=== PATIENT | male | born 1965 | race Caucasian/White ===

== ENCOUNTER 2017-11-03 06:34 | Emergency (ER) | payer OTHER, MEDICAID ==
[~2017-11-03] VITALS: Ht 180.3 cm; Wt 110.0 kg
[2017-11-03] MEDS ORDERED: BUPIVACAINE/PF 0.5% INFIL ONE (07:00)
[2017-11-03 08:18] VITALS: BP 127/76
== END 2017-11-03 09:15 | disposition home or self-care (01) ==
LOC: ED 06:51
DX: S00.93XA Contusion of unspecified part of head, initial encounter (principal); S00.12XA Contusion of left eyelid and periocular area, initial encounter; S00.11XA Contusion of right eyelid and periocular area, initial encounter; S20.212A Contusion of left front wall of thorax, initial encounter; S03.2XXA Dislocation of tooth, initial encounter; Y04.0XXA Assault by unarmed brawl or fight, initial encounter; Y93.89 Activity, other specified; Y92.143 Cell of prison as the place of occurrence of the external cause; Y99.8 Other external cause status
CPT/HCPCS: 70450; 70486; 71045; 99284

== ENCOUNTER 2020-09-13 10:10 | Inpatient (IN) | payer MEDICAID ==
[~2020-09-13] VITALS: Ht 180.3 cm; Wt 93.5 kg
[2020-09-13] MEDS ORDERED: ACETAMINOPHEN 325 MG TABLET PO PRN (10:30)
[2020-09-13] MEDS ORDERED: ONDANSETRON ODT 4 MG PO PRN (10:30)
[2020-09-13] MEDS ORDERED: BISACODYL 10 MG SUPP PR PRN (10:30)
[2020-09-13] MEDS ORDERED: POLYETHYLENE GLYCOL 17 GM PACKET PO PRN (10:30)
[2020-09-13] MEDS ORDERED: DOCUSATE 100 MG CAPSULE PO PRN (10:30)
[2020-09-13 17:30] VITALS: BP 204/126
[2020-09-13] MEDS ORDERED: PLEASE ENTER HEIGHT AND WEIGHT MC SCH (17:30)
[2020-09-13] MEDS ORDERED: LISINOPRIL 20 MG TABLET ONE (17:39)
[2020-09-13] MEDS ORDERED: LISINOPRIL 20 MG TABLET PO ONE (18:00)
[2020-09-13 18:59] LABS: BASOPHILS % (AUTO) 0 % (0-1); EOSINOPHILS % (AUTO) 2 % (1-7); LYMPHOCYTES % (AUTO) 36 % (22-44); MEAN CORPUSCULAR HGB CONC 33.5 g/dL (33.2-36.2); MEAN PLATELET VOLUME 9.1 fL (7.4-10.4); MONOCYTES % (AUTO) 10 % (2-9); NEUTROPHILS % (AUTO) 52 % (42-75); PLATELET COUNT 211 x10^3/uL (130-400); RED BLOOD COUNT 5.05 x10^6/uL (4.38-5.82); RED CELL DISTRIBUTION WIDTH 14.7 % (9.4-14.8)
[2020-09-13 19:00] VITALS: BP 169/98
[2020-09-13 19:03] LABS: MD NO
[2020-09-13 19:08] LABS: ALBUMIN 3.9 g/dL (3.4-5.0); ANION GAP 6 mmol/L (5-15); CALCIUM 8.6 mg/dL (8.5-10.1); CHLORIDE 106 mmol/L (98-107)
[2020-09-13 19:16] LABS: ALANINE AMINOTRANSFERASE 22 U/L (12-78); ALKALINE PHOSPHATASE 70 U/L (45-117); BILIRUBIN,TOTAL 0.5 mg/dL (0.2-1.0); CHOL/HDL RATIO 2.9; CHOLESTEROL, TOTAL 195 mg/dL (140-239); CREATININE 1.07 mg/dL (0.7-1.3); FREE T4 (FREE THYROXINE) 0.95 ng/dL (0.76-1.46); HDL CHOL % 34 % (26-37); HDL CHOLESTEROL (DIRECT) 67 mg/dL (40-60); LDL CHOLESTEROL,CALCULATED 108 mg/dL (54-169); LDL/HDL RATIO 1.6 (0.5-3.0); TOTAL PROTEIN 7.2 g/dL (6.4-8.2); TRIGLYCERIDES 98 mg/dL (50-200); VLDL CHOLESTEROL 20 mg/dL (0-25)
[2020-09-13 19:42] VITALS: BP 179/99
[2020-09-13] MEDS: HYDROCHLOROTHIAZIDE 25 MG TABLET PO SCH (20:04)
[2020-09-13 21:30] VITALS: BP 159/99
[2020-09-13 23:56] LABS: MICROSCOPIC NOT IND
[2020-09-14 07:21] VITALS: BP 158/84
[2020-09-14] MEDS ORDERED: GLUCAGON 1 MG IM PRN (07:30)
[2020-09-14] MEDS ORDERED: DEXTROSE 50%, 50ML SYRINGE IVPush PRN (07:30)
[2020-09-14] MEDS ORDERED: DEXTROSE 4 GM TAB.CHEW PO PRN (07:30)
[2020-09-14] MEDS ORDERED: SODIUM CHLORIDE FLUSH 10ML SYR IVF SCH (09:00)
[2020-09-14] MEDS: HYDROCHLOROTHIAZIDE 25 MG TABLET PO SCH (09:00)
[2020-09-14] MEDS: LISINOPRIL 20 MG TABLET PO SCH (09:34)
[2020-09-14] MEDS: CARIPRAZINE 1.5 MG CAP PO SCH (14:26)
[2020-09-14 19:31] VITALS: BP 160/90
[2020-09-14] MEDS: DIVALPROEX 250 MG TABLET.DR PO SCH (20:26)
[2020-09-15 07:23] VITALS: BP 159/82
[2020-09-15] MEDS: HYDROCHLOROTHIAZIDE 25 MG TABLET PO SCH (09:00)
[2020-09-15] MEDS: CARIPRAZINE 1.5 MG CAP PO SCH (09:31)
[2020-09-15] MEDS: DIVALPROEX 250 MG TABLET.DR PO SCH ×2 (09:31→20:30)
[2020-09-15] MEDS: LISINOPRIL 20 MG TABLET PO SCH (09:31)
[2020-09-15 19:40] VITALS: BP 140/88
[2020-09-16 07:27] VITALS: BP 150/96
[2020-09-16] MEDS: DIVALPROEX 250 MG TABLET.DR PO SCH ×2 (08:32→20:07)
[2020-09-16] MEDS: LISINOPRIL 20 MG TABLET PO SCH (08:32)
[2020-09-16] MEDS: HYDROCHLOROTHIAZIDE 25 MG TABLET PO SCH (08:33)
[2020-09-16] MEDS: CARIPRAZINE 1.5 MG CAP PO SCH (09:00)
[2020-09-16 19:42] VITALS: BP 140/83
[2020-09-17 07:14] VITALS: BP 168/98
[2020-09-17] MEDS: LISINOPRIL 20 MG TABLET PO SCH (08:49)
[2020-09-17] MEDS: DIVALPROEX 250 MG TABLET.DR PO SCH ×2 (08:49→20:09)
[2020-09-17] MEDS: HYDROCHLOROTHIAZIDE 25 MG TABLET PO SCH (08:50)
[2020-09-17] MEDS ORDERED: CARIPRAZINE 1.5 MG CAP PO SCH (09:00)
[2020-09-17 19:30] VITALS: BP 149/91
[2020-09-18 07:30] VITALS: BP 159/108
[2020-09-18] MEDS: DIVALPROEX 250 MG TABLET.DR PO SCH ×2 (08:53→20:35)
[2020-09-18] MEDS: LISINOPRIL 20 MG TABLET PO SCH (08:53)
[2020-09-18] MEDS: HYDROCHLOROTHIAZIDE 25 MG TABLET PO SCH (08:54)
[2020-09-18] MEDS: CARIPRAZINE 1.5 MG CAP PO SCH (08:55)
[2020-09-18] MEDS ORDERED: DIVA-59 PO (17:14)
[2020-09-18] MEDS ORDERED: HYDR25TA6 PO (17:14)
[2020-09-18] MEDS ORDERED: LISI-170 PO (17:14)
[2020-09-18] MEDS ORDERED: CARI1.5C2 PO (17:14)
[2020-09-18 19:41] VITALS: BP 138/89
[2020-09-19 07:32] VITALS: BP 148/94
[2020-09-19] MEDS: DIVALPROEX 250 MG TABLET.DR PO SCH (09:29)
[2020-09-19] MEDS: LISINOPRIL 20 MG TABLET PO SCH (09:29)
[2020-09-19] MEDS: CARIPRAZINE 1.5 MG CAP PO SCH (09:30)
[2020-09-19] MEDS: HYDROCHLOROTHIAZIDE 25 MG TABLET PO SCH (09:30)
== END 2020-09-19 16:29 | disposition home or self-care (01) | DRG 750 ==
LOC: 3E 17:16
PROVIDERS: ADMIT Psychiatry & Neurology Psychosomatic Medicine; ATTEND Psychiatry & Neurology Psychosomatic Medicine
DX: F20.0 Paranoid schizophrenia (principal); Z91.14 Patient's other noncompliance with medication regimen; E16.2 Hypoglycemia, unspecified; I10 Essential (primary) hypertension; Z79.899 Other long term (current) drug therapy
CPT/HCPCS: 36415; 71045; 80053; 80061; 81003; 82962; 84439; 84443; 85025; 93005